=== PATIENT | male | born 1960 | race Caucasian/White ===

== ENCOUNTER 2022-02-12 19:49 | Emergency (ER) | payer SELFPAY ==
--- NOTE | 2022-02-12 20:51 | RAD REPORT ---
EXAM DESCRIPTION: CT - Head Brain Wo Cont - 02/12/2022 8:35 pm CLINICAL HISTORY: Head injury status post fall COMPARISON: None. TECHNIQUE: Computed axial tomography of the head was obtained. IV contrast was not requested. All CT scans are performed using dose optimization technique as appropriate and may include automated exposure control or mA/KV adjustment according to patient size. FINDINGS: An intracranial bleed is not seen . The ventricles are normal in caliber. No significant hypodense areas within the brain visualized No extra-axial fluid collection is noted. Fluid within the sinuses/ mastoids is not seen. IMPRESSION: No acute intracranial abnormality is seen. If patient's symptoms persist MRI of the bra in would be recommended.
--- NOTE | 2022-02-12 20:58 | ER ---
Nurse's Notes [facility] Name: Gene Li Age: 61 yrs Sex: Male : 1960 Arrival Date: 02/12/2022 Time: 19:54 Bed Waiting Private MD: Diagnosis: Unspecified superficial injury of other part of head, initial encounter Presentation: 02/12 20:23 Chief complaint: Patient states: I tripped on the ledge going into my garage, fell and ld1 hit my head on the concrete floor. Denies LOC - not on blood thinners. Coronavirus screen: At this time, the client does not indicate any symptoms associated with coronavirus-19. Ebola Screen: No symptoms or risks identified at this time. Mechanism of Injury: resulted from a fall, from a standing position. Initial Sepsis Screen: Does the patient meet any 2 criteria? No. Patient's initial sepsis screen is negative. Does the patient have a suspected source of infection? No. Patient's initial sepsis screen is negative. Risk Assessment: Do you want to hurt yourself or someone else? Patient reports no desire to harm self or others. 20:23 Method Of Arrival: Ambulatory ld1 20:23 Acuity: BIA 3 ld1 Triage Assessment: 20:23 General: Appears in no apparent distress. comfortable, Behavior is calm, cooperative, ld1 appropriate for age. Pain: Complains of pain in face Pain does not radiate. Pain currently is 6 out of 10 on a pain scale. EENT: No signs and/or symptoms were reported regarding the EENT system. Neuro: Level of Consciousness is awake, alert, obeys commands, Oriented to person, place, time, situation, Denies blurred vision dizziness, headache. Cardiovascular: Capillary refill < 3 seconds Patient's skin is warm and dry. Respiratory: Airway is patent Respiratory effort is even, unlabored. Historical: - Allergies: 20:23 PENICILLINS; ld1 - Home Meds: 20:23 carvedilol oral [Active]; amlodipine oral [Active]; Famotidine Oral [Active]; ld1 Hydralazine Oral [Active]; - PMHx: 20:23 Hypertensive disorder; GERD; ld1 - Immunization history:: Adult Immunizations up to date, Client reports receiving the 2nd dose of the Covid vaccine. - Social history:: Smoking status: Patient denies any tobacco usage or history of. Patient uses alcohol, occasionally. Screenin:01 Abuse screen: Denies threats or abuse. Denies injuries from another. Nutritional ld1 screening: No deficits noted. Tuberculosis screening: No symptoms or risk factors identified. Fall Risk None identified. Assessment: 21:01 Reassessment: See triage assesssment Patient denies pain at this time. Patient states ld1 feeling better. Vital Signs: 20:23 BP 186 / 76; Pulse 82; Resp 18; Temp 98.1(O); Pulse Ox 97% on R/A; Weight 149.69 kg; ld1 Height 5 ft. 11 in. (180.34 cm); Pain 7/10; 21:01 BP 171 / 69; Pulse 83; Resp 18; Pulse Ox 98% on R/A; ld1 20:23 Body Mass Index 46.03 (149.69 kg, 180.34 cm) ld1 Lesley Coma Score: 20:23 Eye Response: spontaneous(4). Verbal Response: oriented(5). Motor Response: obeys ld1 commands(6). Total: 15. 20:26 Eye Response: spontaneous(4). Verbal Response: oriented(5). Motor Response: obeys jr8 commands(6). Total: 15. ED Course: 19:54 Patient arrived in ED. kz 20:23 Zachary Mars PA is PHCP. jr8 20:23 Arm band placed on right wrist. ld1 20:24 Timmy Wan MD is Attending Physician. jr8 20:25 Triage completed. ld1 20:37 CT Head Brain wo Cont In Process Unspecified. EDMS 21:01 Patient has correct armband on for positive identification. Placed in gown. Bed in low ld1 position. Call light in reach. Pulse ox on. NIBP on. Door closed. Noise minimized. Warm blanket given. 21:01 No provider procedures requiring assistance completed. Patient did not have IV access ld1 during this emergency room visit. Administered Medications: No medications were administered Medication: 21: VIS not applicable for this client. ld1 Outcome: 20:58 Discharge ordered by . jr8 21:01 Discharged to home ambulatory. ld1 21:01 Condition: stable 21:01 Discharge instructions given to patient, Instructed on discharge instructions, follow up and referral plans. Demonstrated understanding of instructions, follow-up care. 21:02 Patient left the ED. ld1 Signatures: Dispatcher [employer] EDZachary Orellana PA PA jr8 Sandra Russell RN RN ld1 Radha Appiah Corrections: (The following items were deleted from the chart) 20:24 20:23 Allergies: No Known Allergies; ld1 ld1
--- NOTE | 2022-02-12 20:59 | EDPHYS ---
Physician Documentation [facility] Name: Gene Li Age: 61 yrs Sex: Male : 1960 Arrival Date: 02/12/2022 Time: 19:54 Bed Waiting Private MD: ED Physician Timmy Wan HPI: 02/12 20:26 This 61 yrs old Male presents to ER via Ambulatory with complaints of Head Injury-Adult.jr8 20:26 The patient or guardian reports abrasion, pain. The complaints affect the forehead. jr8 Context of injury: The problem was sustained at home. Onset: The symptoms/episode began/occurred acutely, today. Associated signs and symptoms: The patient has no apparent associated signs or symptoms, Loss of consciousness: This patient did not experience any loss of consciousness. Severity of symptoms: At their worst the symptoms were mild, in the emergency department the symptoms are unchanged. The patient has not experienced similar symptoms in the past. The patient has not recently seen a physician. Patient stated that he had a couple of glasses of wine for dinner. Went outside to check on something and tripped in garage causing him to fall forward and hit head. Denies LOC. Localized pain to head. No other symptoms currently. Historical: - Allergies: 20:23 PENICILLINS; ld1 - Home Meds: 20:23 carvedilol oral [Active]; amlodipine oral [Active]; Famotidine Oral [Active]; ld1 Hydralazine Oral [Active]; - PMHx: 20:23 Hypertensive disorder; GERD; ld1 - Immunization history:: Adult Immunizations up to date, Client reports receiving the 2nd dose of the Covid vaccine. - Social history:: Smoking status: Patient denies any tobacco usage or history of. Patient uses alcohol, occasionally. ROS: 20:26 Eyes: Negative for injury, pain, redness, and discharge, ENT: Negative for injury, jr8 pain, and discharge, Neck: Negative for injury, pain, and swelling, Cardiovascular: Negative for chest pain, palpitations, and edema, Respiratory: Negative for shortness of breath, cough, wheezing, and pleuritic chest pain, Abdomen/GI: Negative for abdominal pain, nausea, vomiting, diarrhea, and constipation, Back: Negative for injury and pain, MS/Extremity: Negative for injury and deformity. 20:26 Neuro: Negative for headache, weakness, numbness, tingling, and seizure. 20:26 Skin: Positive for abrasion(s), of the face. Exam: 20:26 Constitutional: This is a well developed, well nourished patient who is awake, alert, jr8 and in no acute distress. Eyes: Pupils equal round and reactive to light, extra-ocular motions intact. Lids and lashes normal. Conjunctiva and sclera are non-icteric and not injected. Cornea within normal limits. Periorbital areas with no swelling, redness, or edema. ENT: Nares patent. No nasal discharge, no septal abnormalities noted. Oropharynx with no redness, swelling, or masses, exudates, or evidence of obstruction, uvula midline. Mucous membranes moist. Neck: Trachea midline, no thyromegaly or masses palpated, and no cervical lymphadenopathy. Supple, full range of motion without nuchal rigidity, or vertebral point tenderness. No Meningismus. Cardiovascular: Regular rate and rhythm with a normal S1 and S2. No gallops, murmurs, or rubs. Normal PMI, no JVD. No pulse deficits. Respiratory: Lungs have equal breath sounds bilaterally, clear to auscultation and percussion. No rales, rhonchi or wheezes noted. No increased work of breathing, no retractions or nasal flaring. Abdomen/GI: Soft, non-tender, with normal bowel sounds. No distension or tympany. No guarding or rebound. No evidence of tenderness throughout. Back: No spinal tenderness. No costovertebral tenderness. Full range of motion. Skin: Warm, dry with normal turgor. Normal color with no rashes, no lesions, and no evidence of cellulitis. MS/ Extremity: Pulses equal, no cyanosis. Neurovascular intact. Full, normal range of motion. Neuro: Awake and alert, GCS 15, oriented to person, place, time, and situation. Cranial nerves II-XII grossly intact. Motor strength 5/5 in all extremities. Sensory grossly intact. 20:26 Head/face: Noted is abrasion(s), that are mild, of the forehead, tenderness, that is mild, of the forehead. Vital Signs: 20:23 BP 186 / 76; Pulse 82; Resp 18; Temp 98.1(O); Pulse Ox 97% on R/A; Weight 149.69 kg; ld1 Height 5 ft. 11 in. (180.34 cm); Pain 7/10; 21:01 BP 171 / 69; Pulse 83; Resp 18; Pulse Ox 98% on R/A; ld1 20:23 Body Mass Index 46.03 (149.69 kg, 180.34 cm) ld1 Lesley Coma Score: 20:23 Eye Response: spontaneous(4). Verbal Response: oriented(5). Motor Response: obeys ld1 commands(6). Total: 15. 20:26 Eye Response: spontaneous(4). Verbal Response: oriented(5). Motor Response: obeys jr8 commands(6). Total: 15. MDM: 20:29 Patient medically screened. jr8 20:57 Data reviewed: vital signs, nurses notes, radiologic studies, CT scan. Data jr8 interpreted: Pulse oximetry: on room air is 97 %. Interpretation: normal. Counseling: I had a detailed discussion with the patient and/or guardian regarding: the historical points, exam findings, and any diagnostic results supporting the discharge/admit diagnosis, radiology results, the need for outpatient follow up, a family practitioner, to return to the emergency department if symptoms worsen or persist or if there are any questions or concerns that arise at home. 02/12 20:26 Order name: CT Head Brain wo Cont; Complete Time: 20:57 jr8 Administered Medications: No medications were administered Disposition: 02/13 07:08 Co-signature as Attending Physician, Timmy Wan MD. [facility] Disposition Summary: 02/12/22 20:58 Discharge Ordered Location: Home jr8 Problem: new jr8 Symptoms: have improved jr8 Condition: Stable jr8 Diagnosis - Unspecified superficial injury of other part of head, initial encounter jr8 Followup: jr8 - With: Private Physician - When: 5 - 6 days - Reason: Recheck today's complaints, Continuance of care, Re-evaluation by your physician Discharge Instructions: - Discharge Summary Sheet jr8 - Head Injury, Adult jr8 Forms: - Medication Reconciliation Form jr8 - Thank You Letter jr8 - Antibiotic Education jr8 - Prescription Opioid Use jr8 Signatures: Dispatcher [employer] EDMS Zachary Mars PA PA 8 Timmy Wan MD MD [facility] Dibbern, Sandra, RN RN ld1 Corrections: (The following items were deleted from the chart) 02/12 20:24 20:23 Allergies: No Known Allergies; ld1 ld1
[2022-02-12 21:16] VITALS: TEMP 98.1
[2022-02-12 21:18] VITALS: BP 171/69; O2SAT 98
== END 2022-02-12 21:02 | disposition home or self-care (01) ==
LOC: ER 19:49
DX: S00.81XA Abrasion of other part of head, initial encounter (principal); W01.198A Fall on same level from slipping, tripping and stumbling with subsequent striking against other object, initial encounter; Y93.01 Activity, walking, marching and hiking; Y92.015 Private garage of single-family (private) house as the place of occurrence of the external cause; I10 Essential (primary) hypertension; Z88.0 Allergy status to penicillin
CPT/HCPCS: 70450; 99283